=== PATIENT | female | born 1945 | race Hispanic/Latino ===

== ENCOUNTER → 2018-11-12 | Outpatient (REF) | payer MEDICARE ==
[~2018-11-12] MED LIST: DEPO-MEDROL80 MG/ML IM; NAPROSYN500 MG PO; NEURONTIN300 MG PO; PROAIR HFA IN; ROBAXIN-750750 MG; SYMBICORT; SYMBICORT 80-4.5MCG MT; TRAMADOL HCL50 MG PO; TYLENOL # 31 TA1 OR; ZITHROMAX250 MG PO
[2018-11-12 10:24] LABS: URINE BILIRUBIN - DIPSTICK NEGATIVE (NEGATIVE); URINE BLOOD DIPSTICK NEGATIVE (NEGATIVE); URINE COLOR YELLOW; URINE GLUCOSE - DIPSTICK NEGATIVE (NEGATIVE); URINE KETONE NEGATIVE (NEGATIVE); URINE LEUK ESTERASE TRACE (Negative); URINE NITRITE - DIPSTICK NEGATIVE (Negative); URINE PH 5.5 (4.5-8.0); URINE PROTEIN - DIPSTICK NEGATIVE (NEG-TRACE); URINE SPECIFIC GRAVITY >=1.030; URINE UROBILINOGEN - DIPSTICK 0.2 E.U./dL (0.2)
[2018-11-12 10:39] LABS: ALBUMIN 3.8 g/dL (3.2-5.0); ALKALINE PHOSPHATASE 57 u/l (38-126); ANION GAP 11 (6-22 (CALC)); BILIRUBIN, TOTAL 0.5 mg/dL (0.0-1.4); BUN 12 mg/dL (8-23); BUN/CREATININE RATIO 18 (12-20 (CALC)); CALCULATED LDLCHOLESTEROL 119 mg/dL (62-129 (CALC)); CARBON DIOXIDE 30 mmol/l (22-30); CHLORIDE 106 mmol/l (95-108); CHOLESTEROL HDL RATIO 3.6 (<4.4 (CALC)); CREATININE 0.7 mg/dL (0.5-1.0); GFR > 60 ML/MIN (>=60 (CALC)); GFR FOR AFR.AMER. > 60 ML/MIN (>=60 (CALC)); HDL CHOLESTEROL 51 mg/dL (>=40); POTASSIUM 4.3 mmol/l (3.5-5.1); SGOT/AST 18 u/l (9-36); SODIUM 142 mmol/l (137-146); TOTAL CHOLESTEROL 181 mg/dl (0-199); TOTAL PROTEIN 6.4 g/dL (6.3-8.2); TOTAL TRIGLYCERIDES 60 mg/dl (30-149); VLDL CHOLESTROL 12 mg/dl (0-48 (CALC))
[2018-11-12 10:47] LABS: URINE CLARITY CLEAR
[2018-11-12 11:20] LABS: HEMATOCRIT 41.5 % (37.0-47.0); IMMATURE GRANULOCYTES 0.2 % (0.0-5.0); MEAN CELL VOLUME 92.6 fL CALC (80.0-100.0); MEAN CORPUSCULAR HGB CONC 31.3 g/L CALC (32.0-36.0); NEUT# 3.07 thou/uL (2.00-7.15); RED BLOOD COUNT 4.48 mill/uL (4.20-5.60); RED CELL DISTRI WIDTH 13.4 % (11.5-15.5)
== END | disposition home or self-care (01) ==
LOC: LAB 09:29
PROVIDERS: ATTEND Nurse Practitioner Family
DX: R10.11 Right upper quadrant pain (principal); E11.9 Type 2 diabetes mellitus without complications; Z13.220 Encounter for screening for lipoid disorders; Z13.0 Encounter for screening for diseases of the blood and blood-forming organs and certain disorders involving the immune mechanism; N39.0 Urinary tract infection, site not specified

== ENCOUNTER → 2018-11-18 | Outpatient (REF) | payer MEDICARE | END | disposition home or self-care (01) | LOC: CT 15:36 | PROVIDERS: ATTEND Physician Assistant Medical | DX: R10.11 Right upper quadrant pain (principal) ==

== ENCOUNTER 2020-05-24 20:44 | Emergency (ER) | payer MEDICARE ==
[~2020-05-24] VITALS: Ht 160 cm; Wt 79.1 kg
[2020-05-24 21:25] LABS: HEMATOCRIT 41.7 % (37.0-47.0); HEMOGLOBIN 12.9 g/dl (12.0-16.0); IMMATURE GRANULOCYTES 0.2 % (0.0-5.0); MEAN CELL VOLUME 88.9 fL CALC (80.0-100.0); MEAN CORPUSCULAR HGB 27.5 pG CALC (26.0-32.0); MEAN CORPUSCULAR HGB CONC 30.9 g/dL CAL (32.0-36.0); NEUT# 5.24 thou/uL (2.00-7.15); RED BLOOD COUNT 4.69 mill/uL (4.20-5.60); RED CELL DISTRI WIDTH 13.5 % (11.5-15.5)
[2020-05-24 21:43] LABS: ALBUMIN 4.2 g/dL (3.2-5.0); ALKALINE PHOSPHATASE 50 u/l (38-126); ANION GAP 12 (6-22 (CALC)); BILIRUBIN, TOTAL 0.4 mg/dL (0.0-1.4); BUN 17 mg/dL (8-23); BUN/CREATININE RATIO 19 (12-20 (CALC)); CARBON DIOXIDE 27 mmol/l (22-30); CHLORIDE 104 mmol/l (95-108); CREATININE 0.9 mg/dL (0.5-1.0); GFR > 60 ML/MIN (>=60 (CALC)); GFR FOR AFR.AMER. > 60 ML/MIN (>=60 (CALC)); SGOT/AST 21 u/l (9-36); SODIUM 139 mmol/l (137-146); TOTAL PROTEIN 7.1 g/dL (6.3-8.2)
[2020-05-24 21:45] LABS: D-DIMER 0.46 mg/L (0.19-0.60)
[2020-05-24 21:55] LABS: ACT PARTIAL THROMBO TIME 23.6 SECONDS (20.0-32.5); MYOGLOBIN 24 ng/mL (0 - 62); PROTHROMBIN TIME 10.3 SECONDS (9.0-12.5)
[2020-05-24 22:14] LABS: TSH, 3RD GENERATION 2.66 uIU/mL (0.47 - 4.68)
[2020-05-24] MEDS ORDERED: LISINOP/HCTZ1 TAB PO (22:45)
[2020-05-24 23:35] VITALS: BP 152/75
== END 2020-05-24 23:35 | disposition home or self-care (01) ==
LOC: ED 20:44
PROVIDERS: Family Medicine
DX: I10 Essential (primary) hypertension (principal); R73.9 Hyperglycemia, unspecified; R06.00 Dyspnea, unspecified

== ENCOUNTER 2022-11-03 11:19 | Emergency (ER) | payer MEDICARE ==
[2022-11-03] VITALS (8 sets, daily range): BP systolic 98–130; BP diastolic 58–76
[~2022-11-03] VITALS: Ht 160 cm; Wt 81.0 kg
[~2022-11-03 11:19] MED LIST changes: +LISINOP/HCTZ1 TAB PO
[2022-11-03 12:28] LABS: BASO% 0.5 % (0-3); EOS% 1.2 % (0-8); HEMATOCRIT 42.5 % (37.0-47.0); HEMOGLOBIN 13.6 g/dl (12.0-16.0); IMMATURE GRANULOCYTES 0.1 % (0.0-5.0); LYMPH% 30.4 % (15-41); MEAN CELL VOLUME 88.7 fL CALC (80.0-100.0); MEAN CORPUSCULAR HGB 28.4 pG CALC (26.0-32.0); MONO% 6.1 % (2-13); NEUT# 5.14 thou/uL (2.00-7.15); NEUT% 61.7 % (42-76); RED BLOOD COUNT 4.79 mill/uL (4.20-5.60); RED CELL DISTRI WIDTH 13.2 % (11.5-15.5)
[2022-11-03 12:59] LABS: ALBUMIN 4.3 g/dL (3.2-5.0); ALKALINE PHOSPHATASE 56 u/l (38-126); ANION GAP 14 (6-22 (CALC)); BILIRUBIN, TOTAL 0.4 mg/dL (0.02-1.3); BUN 22 mg/dL (8-23); BUN/CREATININE RATIO 25 (12-20 (CALC)); CARBON DIOXIDE 23 mmol/l (22-30); CHLORIDE 106 mmol/l (95-108); CREATININE 0.9 mg/dL (0.5-1.0); GFR FOR AFR.AMER. > 60 ML/MIN (>=60 (CALC)); GFR OTHER RACES > 60 ML/MIN (>=60 (CALC)); SGOT/AST 25 u/l (9-36); SODIUM 139 mmol/l (137-146); TOTAL PROTEIN 7.2 g/dL (6.3-8.2)
[2022-11-03] MEDS ORDERED: DOXY-CAPS100 MG PO (13:26)
== END 2022-11-03 14:07 | disposition home or self-care (01) ==
LOC: ED 11:19
PROVIDERS: Family Medicine
DX: J06.9 Acute upper respiratory infection, unspecified (principal); I10 Essential (primary) hypertension; Z20.822 Contact with and (suspected) exposure to COVID-19

== ENCOUNTER 2023-09-18 17:52 | Emergency (ER) | payer MEDICARE ==
[~2023-09-18] VITALS: Ht 160 cm; Wt 70.0 kg
[2023-09-18] VITALS (7 sets, daily range): BP systolic 125–171; BP diastolic 61–90
[~2023-09-18 17:52] MED LIST changes: +DOXY-CAPS100 MG PO
[2023-09-18 18:41] LABS: BASO% 0.5 % (0-3); EOS% 0.4 % (0-8); HEMATOCRIT 43.3 % (37.0-47.0); HEMOGLOBIN 14.2 g/dl (12.0-16.0); IMMATURE GRANULOCYTES 0.2 % (0.0-5.0); LYMPH% 11.9 % (15-41); MEAN CORPUSCULAR HGB 29.5 pG CALC (26.0-32.0); MEAN CORPUSCULAR HGB CONC 32.8 g/dL CAL (32.0-36.0); MONO% 5.6 % (2-13); NEUT# 8.67 thou/uL (2.00-7.15); NEUT% 81.4 % (42-76); RED BLOOD COUNT 4.81 mill/uL (4.20-5.60); RED CELL DISTRI WIDTH 13.1 % (11.5-15.5)
[2023-09-18 18:45] LABS: URINE BILIRUBIN - DIPSTICK Negative (NEGATIVE); URINE BLOOD DIPSTICK Large (NEGATIVE); URINE GLUCOSE - DIPSTICK Negative (NEGATIVE); URINE KETONE 40 mg/dL (NEGATIVE); URINE LEUK ESTERASE Trace (NEGATIVE); URINE NITRITE - DIPSTICK Negative (Negative); URINE PH 6.5 (4.5-8.0); URINE PROTEIN - DIPSTICK 30 mg/dL (NEG-TRACE); URINE SPECIFIC GRAVITY 1.025; URINE UROBILINOGEN - DIPSTICK 0.2 E.U./dL (0.2)
[2023-09-18 18:46] LABS: URINE COLOR Yellow
[2023-09-18 18:53] LABS: URINE SQUAMOUS EPITHELIAL CELL MODERATE EPI/hpf (0-FEW)
[2023-09-18 19:00] LABS: ALBUMIN 4.4 g/dL (3.2-5.0); ALKALINE PHOSPHATASE 68 u/l (38-126); ANION GAP 13 (6-22 (CALC)); BUN 16 mg/dL (8-23); BUN/CREATININE RATIO 18 (12-20 (CALC)); CARBON DIOXIDE 26 mmol/l (22-30); CHLORIDE 109 mmol/l (95-108); CREATININE 0.9 mg/dL (0.5-1.0); GFR FOR AFR.AMER. > 60 ML/MIN (>=60 (CALC)); GFR OTHER RACES > 60 ML/MIN (>=60 (CALC)); LIPASE 80 u/l (23-300); SGOT/AST 31 u/l (9-36); SODIUM 143 mmol/l (137-146); TOTAL PROTEIN 7.1 g/dL (6.3-8.2)
[2023-09-18 19:01] LABS: BILIRUBIN, TOTAL 0.6 mg/dL (0.02-1.3)
[2023-09-18] MEDS ORDERED: TAMSULOSIN0.4 MG PO (19:15)
[2023-09-18] MEDS ORDERED: HYDROCO/APAP1 TA9 PO (19:15)
[2023-09-18] MEDS ORDERED: OMNI-PAC300 MG PO (19:15)
[2023-09-18] MEDS ORDERED: TORADOL PO (19:15)
== END 2023-09-18 20:56 | disposition home or self-care (01) ==
LOC: ED 17:52
PROVIDERS: Family Medicine
DX: N20.1 Calculus of ureter (principal); I10 Essential (primary) hypertension; J44.9 Chronic obstructive pulmonary disease, unspecified; Z87.442 Personal history of urinary calculi

== ENCOUNTER 2024-10-25 17:06 | Emergency (ER) | payer MEDICARE ==
[~2024-10-25] VITALS: Ht 160 cm; Wt 82.1 kg
[2024-10-25] VITALS (8 sets, daily range): BP systolic 142–173; BP diastolic 74–87
[~2024-10-25 17:06] MED LIST changes: +HYDROCO/APAP1 TA9 PO; +OMNI-PAC300 MG PO; +TAMSULOSIN0.4 MG PO; +TORADOL PO
[2024-10-25 17:47] LABS: BASO% 0.5 % (0-3); EOS% 2.2 % (0-8); HEMATOCRIT 43.2 % (37.0-47.0); HEMOGLOBIN 13.5 g/dl (12.0-16.0); IMMATURE GRANULOCYTES 0.1 % (0.0-5.0); MEAN CELL VOLUME 93.5 fL CALC (80.0-100.0); MEAN CORPUSCULAR HGB 29.2 pG CALC (26.0-32.0); MEAN CORPUSCULAR HGB CONC 31.3 g/dL CAL (32.0-36.0); MONO% 7.9 % (2-13); NEUT# 5.55 thou/uL (2.00-7.15); NEUT% 65.3 % (42-76); RED BLOOD COUNT 4.62 mill/uL (4.20-5.60); RED CELL DISTRI WIDTH 13.5 % (11.5-15.5)
[2024-10-25 17:58] LABS: ALKALINE PHOSPHATASE 47 u/l (38-126); ANION GAP 8 (6-22 (CALC)); BILIRUBIN, TOTAL 0.6 mg/dL (0.02-1.3); BUN 16 mg/dL (8-23); BUN/CREATININE RATIO 17 (12-20 (CALC)); CALCULATED LDLCHOLESTEROL 119 mg/dL (62-129 (CALC)); CARBON DIOXIDE 31 mmol/l (22-30); CHLORIDE 108 mmol/l (95-108); CHOLESTEROL HDL RATIO 3.7 (<4.4 (CALC)); CREATININE 0.9 mg/dL (0.5-1.0); ESTIMATED GFR 65 ML/MIN (>=90 (CALC)); HDL CHOLESTEROL 53 mg/dL (39.0-59.0); POTASSIUM 3.4 mmol/l (3.5-5.1); SGOT/AST 30 u/l (9-36); SODIUM 144 mmol/l (137-146); TOTAL CHOLESTEROL 198 mg/dl (0-199); TOTAL PROTEIN 6.9 g/dL (6.3-8.2); TOTAL TRIGLYCERIDES 131 mg/dl (0-149); VLDL CHOLESTROL 26 mg/dl (0-48 (CALC))
[2024-10-25 18:13] LABS: PROTHROMBIN TIME 11.2 SECONDS (9.0-12.5)
[2024-10-25 18:51] LABS: URINE BILIRUBIN - DIPSTICK Negative (NEGATIVE); URINE BLOOD DIPSTICK Trace-intact (NEGATIVE); URINE COLOR Yellow; URINE GLUCOSE - DIPSTICK Negative (NEGATIVE); URINE KETONE Negative (NEGATIVE); URINE LEUK ESTERASE Small (NEGATIVE); URINE NITRITE - DIPSTICK Negative (Negative); URINE PROTEIN - DIPSTICK Negative (NEG-TRACE); URINE SPECIFIC GRAVITY 1.015; URINE UROBILINOGEN - DIPSTICK 0.2 E.U./dL (0.2)
[2024-10-25 19:00] LABS: URINE BACTERIA FEW hpf; URINE RBC 0-2 RBC/hpf (0-5); URINE SQUAMOUS EPITHELIAL CELL FEW EPI/hpf (0-FEW)
== END 2024-10-25 19:35 | disposition left against medical advice (07) ==
LOC: ED 17:06 → ED-I 17:57 → ED 17:57
PROVIDERS: Family Medicine
DX: R29.810 Facial weakness (principal); R48.2 Apraxia; Z53.29 Procedure and treatment not carried out because of patient's decision for other reasons
CPT/HCPCS: Q9967